=== PATIENT | male | born 1990 ===

== ENCOUNTER 2019-07-20 16:09 | Emergency (ER) | payer OTHER ==
[2019-07-20 17:54] VITALS: BP 106/68
--- NOTE | 2019-07-20 18:07 | UC ---
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 He has an appt to have a root canal in 2 weeks. He is visiting from [place] and returning back on next Tuesday. Today after flight here,he had develop tooth pain, subjective fever, mild sore throat and mild diarrhea. Pain is 4/10. Denies ear pain, GAN, dizziness, SOB, cough, abdominal pain, N/V/d, trismus, chest pain. - History of Current Complaint Chief Complaint: UCGeneralIllness Stated Complaint: TOOTH ACHE Time Seen by Provider: 07/20/19 18:04 Hx Obtained From: Patient Onset/Duration: Gradual Onset, Lasting Weeks - 2 weeks ago w/ tooth infection, Still Present, Worse Since - last night Severity: Moderate Pain Intensity: 5 Pain Scale Used: 0-10 Numeric Aggravating Factor(s): Chewing Alleviating Factor(s): OTC Meds - Allergies/Home Medications Allergies/Adverse Reactions: Allergies Allergy/AdvReac Type Severity Reaction Status Date / Time No Known Allergies Allergy Verified 07/20/19 17:54 Home Medications: Home Medications Multivitamin [Multivitamins] 1 tab PO DAILY 07/20/19 [History Confirmed 07/20/19 ] PMH/Surg Hx/FS Hx/Imm Hx Previously Healthy: Yes - Pt denies PMHX - Surgical History Surgical History: None - Family History Known Family History: Positive: Hypertension, Diabetes - Social History Occupation: Employed Full-time Lives: With Family Alcohol Use: Occasionally Substance Use Type: None Smoking Status (MU): Never Smoked Tobacco Review of Systems All Other Systems Reviewed And Are Negative: Yes Constitutional: Positive: Chills, Other - body aches Skin: Positive: Negative Eyes: Positive: Negative ENT: Positive: Dental Pain - RT upper jaw pain w/ a caries that needs a root canal procedure, Sore Throat - mild, Nasal Discharge - clear, Sinus Congestion Respiratory: Positive: Negative Cardiovascular: Positive: Negative Gastrointestinal: Positive: Negative Genitourinary: Positive: Negative Motor: Positive: Negative Neurovascular: Positive: Negative Musculoskeletal: Positive: Negative Neurological: Positive: Negative Psychological: Positive: Negative Is Patient Immunocompromised?: No Physical Exam - Summary Physical Exam Summary: Vital Signs Reviewed: Yes General: Well-Appearing, Well-Nourished male sitting in the examining table w/ o any respiratory or pain distress Eyes: Positive: Conjunctiva Clear - PERRLA, EOMI, ENT: Positive: Normal ENT inspection, Hearing grossly normal, Pharynx mild erythema, no exudate, TMs normal - B/L external ear canals clear,. Negative: Tonsillar swelling, Tonsillar exudate, Trismus Dental: Positive: Gross Decay/Caries on molars #3 w/ gingival swelling and erythema, tender to percussion. involves tissue surrounding theses molars, w/ positive anterior Cervical Lymphadenopathy. Neck: Positive: Supple Respiratory: Positive: Chest non-tender, Lungs clear, Normal breath sounds, No respiratory distress Cardiovascular: Positive: RRR, No Murmur, Pulses Normal, Brisk Capillary Refill Abdomen Description: Positive: Nontender, No Organomegaly, Soft. 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 He has an appt to have a root canal in 2 weeks. He is visiting from [place] and returning back on next Tuesday. Today after flight here,he had develop tooth pain, subjective fever, mild sore throat and mild diarrhea. Pain is 4/10. Denies ear pain, GAN, dizziness, SOB, cough, abdominal pain, N/V/d, trismus, chest pain. Pt with dental abscess and pharyngitis on examination. Rapid strep: negative, Rapid influenza A&B: negative. Pt Rx Amoxicillin PO and advised to take ibuprofen PO for pain. Advised on hand washing to avoid spreading. Pt advised to rest, eat well and avoid strenuous exercise. Pt strongly advised to f/u with Dentist as soon as possible for further evaluation and treatment. Pt understood and agreed with plan of care. Left the clinic ambulating. - Differential Dx/Diagnosis Differential Diagnosis/Dx: Dental Abscess, Dental Caries, Gingivitis, Odontogenic Pain, Peridontic Disease, Peritonsillar Abcess, Pharyngitis, Tonsillitis Provider Diagnosis: Dental abscess, Caries, Pharyngitis Discharge ED - Sign-Out/Discharge Documenting (check all that apply): Patient Departure - d/C home All imaging exams completed and their final reports reviewed: No Studies - Discharge Plan Condition: Stable Disposition: HOME Prescriptions: Amoxicillin PO (*) [Amoxicillin 500 MG CAP*] 500 mg PO TID #30 cap Patient Education Materials: Dental Abscess (ED) Referrals: [facility] [place] [facility]IAN REFERRAL [Outside] - 3 Days Additional Instructions: 1-Please take full course of antibiotics to avoid resistance. Take yogurts w/ probiotics or culturelle PO to protect your GI system 2- Take Ibuprofen PO as instructed after meals to alleviate pain and swelling. Increase fluid intake eat well and rest 3- F/u with your Dentist or Dental List provided as soon as possible for further treatment. 4- If symptoms do not improve or worsen please return to the urgent care or f/u with your PCP in 3 day for further evaluation and treatment - Billing Disposition and Condition Condition: STABLE Disposition: Home
[2019-07-20 18:45] LABS: Influenza A Molecular NEGATIVE (Negative); Influenza B Molecular NEGATIVE (Negative)
== END 2019-07-20 19:33 | disposition home or self-care (01) ==
LOC: UCEAST 16:09
DX: K04.7 Periapical abscess without sinus (principal); K02.9 Dental caries, unspecified; J02.9 Acute pharyngitis, unspecified
CPT/HCPCS: 87651; 99202; G0463